=== PATIENT | female | born 1980 | race Caucasian/White ===

== ENCOUNTER 2017-06-04 01:03 | Emergency (ER) | payer BC ==
[~2017-06-04] VITALS: Ht 172.7 cm; Wt 65.0 kg
[~2017-06-04 01:03] MED LIST: ACET-1175 PO; ALUMSUS2; MTR600X PO; PRENTAB26 PO
[2017-06-04 01:10] VITALS: TEMP 36.6; Ht 172.7 cm; Wt 65.0 kg
[2017-06-04] MEDS ORDERED: SODIUM CHLORIDE 0.9% 1000ML 2,000 ML IV STA (01:19)
[2017-06-04 01:54] LABS: ISTAT CREATININE 0.6 mg/dl (0.6-1.3); ISTAT HEMOGLOBIN 10.2 g/dl (12.0-16.0); ISTAT IONIZED CALCIUM 1.11 mmol/l (1.12-1.32)
[2017-06-04 01:57] LABS: BASO % 0.4 %; BASO ABS # 0.04 K/uL (0-0.2); COMPLETE YES; EOS % 0.9 %; HEMATOCRIT 31.8 % (37-47); IG% 0.2 %; LYMPH % 22.6 %; LYMPH ABS # 2.32 K/uL (1.2-3.4); MEAN CELL VOLUME 91.4 fL (80-100); MEAN CORPUSCULAR HEMOGLOBIN 31.6 pg (25-34); MEAN CORPUSCULAR HGB CONC 34.6 g/dl (32-36); MEAN PLATELET VOLUME 9.7 fL (7.4-10.4); MONO % 5.3 %; NEUT % 70.6 %; PLATELET COUNT 243 K/uL (130-400); RED BLOOD COUNT 3.48 M/uL (4.2-5.4); WHITE BLOOD COUNT 10.25 K/uL (4.8-10.8)
[2017-06-04 02:07] LABS: INR 1.1 (0.9-1.1); PARTIAL THROMBOPLASTIN RATIO 0.9; PROTHROMBIN TIME (PATIENT) 11.4 SECONDS (9.0-12.0)
[2017-06-04 02:15] LABS: BUN/CREATININE RATIO 19.5 (10-20); CALCIUM 7.6 mg/dl (8.5-10.1); CREATININE 0.62 mg/dl (0.60-1.20); POTASSIUM 3.5 mmol/L (3.5-5.1)
[2017-06-04] MEDS ORDERED: MISOPROSTOL 200 MCG TAB PO STA (04:30)
--- NOTE | 2017-06-04 04:33 | EMERGENCY ROOM VISIT NOTE ---
History First contact with patient: 01:14 Chief Complaint: ED VAG BLEEDING Stated Complaint: SHORT OF BREATH History of Present Illness The patient is a 36 year old female who presents to the Emergency Room with complaints of heavy vaginal bleeding who was 12 weeks but had an ultrasound today by the OB office and showed demise. Patient follows at [facility]. She has two living children. No other miscarriages. Patient states she's gone through greater than 12 pad since 9 PM. Patient states she nearly passed out. Patient states she just sat on the toilet and let the blood poor out of her. Patient states she feels weak and lightheaded. Patient states she had some cramping but this is now resolved. Patient denies chest pain, fevers, bleeding disorders, blood transfusions in the past. Review of Systems See HPI for pertinent positives & negatives. A total of 10 systems reviewed and were otherwise negative. Past Medical/Surgical History Medical Problems: (1) Vaginal delivery Appendectomy Social History Smoking Status: Never Smoker Smokeless Tobacco Use: No Drug Use: none Marital Status: Housing Status: lives with family Current/Historical Medications No Active Prescriptions or Reported Meds Physical Exam Vital Signs Date Time Temp Pulse Resp B/P (MAP) Pulse Ox O2 Delivery O2 Flow Rate FiO2 06/04/17 03:27 76 18 102/67 98 Room Air 06/04/17 01:45 Room Air 06/04/17 01:11 68 06/04/17 01:10 36.6 68 18 126/64 100 Room Air 06/04/17 01:08 115/76 Physical Exam VITALS: Vitals are noted on the nurse's note and reviewed by myself. Vital signs stable. GENERAL: Pleasant female, in no acute distress, nondiaphoretic, well-developed well-nourished. SKIN: Capillary reflex less than 2 seconds. HEENT: Normocephalic. PERRLA. EOMI. Nares patent. Mucous membranes moist. Neck is supple without nuchal rigidity. HEART: Regular rate and rhythm without murmurs gallops or rubs. LUNGS: Clear to auscultation bilaterally without wheezes, rales or rhonchi. No retractions or accessory muscle use. ABDOMEN: Positive bowel sounds x 4. Normal tympanic percussion. Soft, nontender, without masses or organomegaly. Mehta sign negative. No guarding or rebound tenderness. No CVA tenderness exam: Normal external female genitalia, copious amount of blood in the vault , slit os that appears closed. Crystal Cutter present MUSCULOSKELETAL: No gross musculoskeletal defects. NEURO: Patient was alert and oriented to person place and time. Normal sensation to light and sharp touch. No focal neurological deficits. Medical Decision & Procedures Laboratory Results 06/04/17 01:32 Red Blood Count 3.48, Mean Corpuscular Volume 91.4, Mean Corpuscular Hemoglobin 31.6, Mean Corpuscular Hemoglobin Concent 34.6, Mean Platelet Volume 9.7, Neutrophils (%) (Auto) 70.6, Lymphocytes (%) (Auto) 22.6, Monocytes (%) (Auto) 5.3, Eosinophils (%) (Auto) 0.9, Basophils (%) (Auto) 0.4, Neutrophils # (Auto) 7.24, Lymphocytes # (Auto) 2.32, Monocytes # (Auto) 0.54, Eosinophils # (Auto) 0.09, Basophils # (Auto) 0.04 06/04/17 01:32 Test 06/04/17 01:32 06/04/17 01:41 White Blood Count 10.25 K/uL (4.8-10.8) Red Blood Count 3.48 M/uL (4.2-5.4) Hemoglobin 11.0 g/dL (12.0-16.0) Hematocrit 31.8 % (37-47) Mean Corpuscular Volume 91.4 fL (80-100) Mean Corpuscular Hemoglobin 31.6 pg (25-34) Mean Corpuscular Hemoglobin Concent 34.6 g/dl (32-36) Platelet Count 243 K/uL (130-400) Mean Platelet Volume 9.7 fL (7.4-10.4) Neutrophils (%) (Auto) 70.6 % Lymphocytes (%) (Auto) 22.6 % Monocytes (%) (Auto) 5.3 % Eosinophils (%) (Auto) 0.9 % Basophils (%) (Auto) 0.4 % Neutrophils # (Auto) 7.24 K/uL (1.4-6.5) Lymphocytes # (Auto) 2.32 K/uL (1.2-3.4) Monocytes # (Auto) 0.54 K/uL (0.11-0.59) Eosinophils # (Auto) 0.09 K/uL (0-0.5) Basophils # (Auto) 0.04 K/uL (0-0.2) RDW Standard Deviation 41.3 fL (36.4-46.3) RDW Coefficient of Variation 12.4 % (11.5-14.5) Immature Granulocyte % (Auto) 0.2 % Immature Granulocyte # (Auto) 0.02 K/uL (0.00-0.02) Prothrombin Time 11.4 SECONDS (9.0-12.0) Prothromb Time International Ratio 1.1 (0.9-1.1) Activated Partial Thromboplast Time 23.1 SECONDS (21.0-31.0) Partial Thromboplastin Ratio 0.9 Est Creatinine Clear Calc Drug Dose 125.3 ml/min Estimated GFR () 133.5 Estimated GFR (Non- 115.2 BUN/Creatinine Ratio 19.5 (10-20) Calcium Level 7.6 mg/dl (8.5-10.1) Total Bilirubin 0.8 mg/dl (0.2-1) Aspartate Amino Transf (AST/SGOT) 13 U/L (15-37) Alanine Aminotransferase (ALT/SGPT) 15 U/L (12-78) Alkaline Phosphatase 39 U/L (45-117) Total Protein 5.7 gm/dl (6.4-8.2) Albumin 2.9 gm/dl (3.4-5.0) Globulin 2.8 gm/dl (2.5-4.0) Albumin/Globulin Ratio 1.0 (0.9-2) Human Chorionic Gonadotropin, Quant 6797 mIU/mL Bedside Hemoglobin 10.2 g/dl (12.0-16.0) Bedside Hematocrit 30 % (37-47) Bedside Sodium 138 mEq/L (135-144) Bedside Potassium 3.5 mEq/L (3.3-5.0) Bedside Chloride 102 mEq/L (101-112) Bedside Total CO2 24 mEq/l (24-31) Anion Gap 18.0 mmol/L (16-25) Bedside Blood Urea Nitrogen 12 mg/dl (7-18) Bedside Creatinine 0.6 mg/dl (0.6-1.3) Bedside Glucose (other) 103 mg/dl (70-99) Bedside Ionized Calcium (Faiza) 1.11 mmol/l (1.12-1.32) Medications Administered Medications (Trade) Dose Ordered Sig/Power Route Start Time Stop Time Status Last Admin Dose Admin Sodium Chloride 2,000 ml @ 999 mls/hr Q2H1M STAT IV 06/04/17 01:19 06/04/17 03:19 DC 06/04/17 01:19 999 MLS/HR ED Course Prior records/ancillary studies reviewed. Triage Nursing notes reviewed. Additional history obtained from the family. The patient's history was concerning for vaginal bleeding and abdominal pain. Differential diagnosis: Etiologies such as miscarriage, incomplete miscarriage, retained products of conception, dysfunction uterine bleeding, bleeding dyscrasia, trauma, infection , as well as others were entertained. Physical examination: As above. Vitals signs revealed stable. ER treatment provided: IV fluids On reassessment the patient felt better. Diagnostic interpretation by me: The labs revealed the patient to the Rh O- , mild anemia. Patient received Rhogam today in the office Quat hCG is normal 7000 Imaging studies: Ultrasound was reviewed and read by stat radiology and concerning for incomplete miscarriage Consultation: A consultation was placed with the ear nose and throat specialist physician, Dr Delgado. The case was discussed and diagnostics were reviewed. She recommends Cytotec with discharge and had the patient felt tomorrow in clinic. This appears to be consistent with incomplete miscarriage. Patient is requesting status Cytotec. She states she'll follow tomorrow with [facility]. Patient did not have acute abdomen on exam. The bleeding had tapered off. Stable vital signs. Mild anemia. She is advised to follow tomorrow with OB or here in the ER sooner for heavy bleeding, weakness, syncope, worsening signs or symptoms or as needed. By the evaluation outlined above emergent etiologies such as bleeding dyscrasia, ectopic , trauma, as well as others were deemed relatively unlikely. The pt informed about the findings as listed above. All questions were answered and pleased with the treatment. Return instructions were outlined and the patient was discharged in stable condition. Referral: The patient was referred to [facility] for follow-up tomorrow for a recheck of her current condition. Case reviewed with my attending. Medical Decision As above Medication Reconcilliation Current Medication List: was personally reviewed by me Blood Pressure Screening Patient's blood pressure: Normal blood pressure Impression Primary Impression: Incomplete miscarriage Departure Information Dispostion Home / Self-Care Condition GOOD Prescriptions No Active Prescriptions or Reported Meds Referrals Buzz Moore MD (PCP) Patient Instructions My [facility] Additional Instructions Expect abdominal cramping with the Cytotec. Rest. Stay well hydrated. No strenuous activity or intercourse until cleared by [facility]. Zofran 4 tablet every 6 hours as needed for nausea and vomiting. Acetaminophen(Tylenol) may be used for fever or pain. Use 1000mg every six hours as needed. Avoid using more than 3000mg in a 24 hour period. Rest and drink plenty of fluids as tolerated. Continue current medications. Return to the ER immediately for worsening or persistent heavy vaginal bleeding , abdominal pain, vomiting, fevers, chest pains, difficulty breathing, worsening of your condition, or as needed. Follow up with your [facility] tomorrow for a recheck of your current condition.
[2017-06-04 04:59] VITALS: BP 94/62; PULSE 81; O2SAT 97
[2017-06-04] MEDS ORDERED: ONDANSETRON HOME PACK 4MG OD TAB ONE (05:25)
--- NOTE | 2017-06-04 07:10 | DIAGNOSTIC IMAGING REPORT ---
<14 WKS SINGLE, TRANSVAGINAL CLINICAL HISTORY: 36 years-old Female presenting with miscarry, ? RPOC. TECHNIQUE: Real-time grayscale and color and spectral Doppler ultrasound imaging of the pelvis was performed first using a transabdominal probe and subsequently transvaginal for better characterization. COMPARISON: 10/15/2011 FINDINGS: Uterus: Ovoid fluid collection at the level of the endocervical canal measures 1.8 cm and could be consistent with a gestational sac corresponding to a gestational age of 6 weeks 2 days, although the positioning is not normal. Peripheral irregular isoechoic soft tissue does not demonstrate a heartbeat but is likely consistent with a pole. This measures 5 mm which corresponds to a gestational age of 6 weeks 1 day. No yolk sac is visualized. The uterus measures 9.6 x 4.8 x 5.6 cm. Anteverted uterus. Heterogeneously isoechoic endometrial thickening at the fundus with minimal color Doppler flow along the posterior aspect. Right adnexa: Right ovary normal. Right ovary measures 2.6 x 1.0 x 2.2 cm. Normal color Doppler flow and arterial and venous waveforms within the ovarian parenchyma. Left adnexa: Left ovary contains a corpus luteum as well as an additional hypoechoic 1.2 x 1.0 x 1.3 cm lesion, possibly hemorrhagic cyst. Left ovary measures 3.7 x 2.0 x 2.5 cm. Normal color Doppler flow and arterial and venous waveforms within the ovarian parenchyma. Other: No free fluid. IMPRESSION: 1. Ovoid fluid collection but could be consistent with a gestational sac within the cervix, most suggestive of a spontaneous miscarriage. This contains a suspected 5 mm pole that does not demonstrate a heartbeat, although its size may be too small to detect. Heterogeneous material at the uterine fundus without evidence of significant color Doppler flow most consistent with blood products. Close clinical follow-up is recommended with quantitative beta hCG trending. 2. Left corpus luteum likely with a hemorrhagic cyst. No evidence of ovarian torsion. Electronically signed by: Ash Graham M.D. 06/04/2017 7:09 AM Dictated Date/Time: 06/04/2017 7:01 AM
== END 2017-06-04 05:34 | disposition home or self-care (01) ==
LOC: EDBD 01:03 → C.EDB 01:04
DX: O03.4 Incomplete spontaneous abortion without complication (principal); Z3A.12 12 weeks gestation of pregnancy